=== PATIENT | male | born 1960 | race Hispanic/Latino ===

== ENCOUNTER 2022-01-06 19:35 | Emergency (ER) | payer MEDICARE ==
[~2022-01-06] VITALS: Ht 172.7 cm; Wt 86.2 kg
[2022-01-06] MEDS ORDERED: ACETAMINOPHEN 325 MG TAB PO ONE (20:15)
[2022-01-06 20:52] VITALS: BP 137/86
[2022-01-06] MEDS ORDERED: CEPHALEXIN500 MG PO (20:57)
[2022-01-06] MEDS ORDERED: BACITRACIN ZINC 0.9GM TP ONE (21:08)
[2022-01-11] MEDS ORDERED: DOXYCYCLINE HY100 MG PO (14:43)
== END 2022-01-06 20:57 | disposition home or self-care (01) ==
LOC: ER 19:47
DX: Z48.00 Encounter for change or removal of nonsurgical wound dressing (principal); T23.062A Burn of unspecified degree of back of left hand, initial encounter; R50.9 Fever, unspecified; I10 Essential (primary) hypertension; E78.5 Hyperlipidemia, unspecified; F17.210 Nicotine dependence, cigarettes, uncomplicated
CPT/HCPCS: 99283

== ENCOUNTER 2022-01-08 19:40 | Inpatient (IN) | payer MEDICARE ==
[~2022-01-08] VITALS: Ht 172.7 cm; Wt 86.2 kg
[~2022-01-08 19:40] MED LIST: CEPHALEXIN500 MG PO
[2022-01-08] MEDS ORDERED: SODIUM CHLORIDE 0.9% 1000ML 1,000 ML IV ONE (20:30)
[2022-01-08] MEDS ORDERED: ACETAMINOPHEN 325 MG TAB PO ONE (20:30)
[2022-01-08 20:57] LABS: BASOPHILS # (AUTO) 0.1 (0.0-0.1); BASOPHILS % 0.4 % (0.0-1.0); EOSINOPHILS # (AUTO) 0.2 (0.0-0.4); EOSINOPHILS % 1.1 % (0.0-6.0); HEMATOCRIT 37.7 % (38.2-49.6); HEMOGLOBIN 12.2 g/dL (14.0-18.0); LYMPHOCYTES # (AUTO) 1.6 (1.0-3.2); LYMPHOCYTES % 8.2 % (18.0-39.1); MEAN CORPUSCULAR HEMOGLOBIN 30.9 pg (28-32); MEAN CORPUSCULAR HGB CONC 32.4 g/dL (31-35); MEAN CORPUSCULAR VOLUME 95.4 fL (81-99); MONOCYTES # (AUTO) 1.3 (0.2-0.8); MONOCYTES % 6.4 % (4.4-11.3); NEUTROPHILS # (AUTO) 16.2 (2.1-6.9); NEUTROPHILS % 83.4 % (38.7-80.0); PLATELET COUNT 587 x10e3/uL (140-360); RED BLOOD COUNT 3.95 x10e6/uL (4.3-5.7); RED CELL DISTRIBUTION WIDTH 12.8 % (11.7-14.4)
[2022-01-08 21:16] LABS: ALBUMIN 3.1 g/dL (3.5-5.0); ALBUMIN/GLOBULIN RATIO 0.6 (0.8-2.0); ANION GAP 15.7 mmol/L (8-16); CALCIUM 8.8 mg/dL (8.4-10.2); CREATININE, SERUM 0.89 mg/dL (0.72-1.25); POTASSIUM 3.7 mmol/L (3.5-5.1)
[2022-01-08 21:17] LABS: CREATINE KINASE 227 IU/L (30-200)
[2022-01-08] MEDS: Vancomycin IV 1 GM in SODIUM CHLORIDE 0.9% 250ML 250 ML IV SCH (21:30)
[2022-01-08] MEDS ORDERED: ACETAMINOPHEN 325 MG TAB PO PRN ×2 (21:45→23:00)
[2022-01-08] MEDS ORDERED: Morphine 4mg INJECTION 4 MG/ML INJ IV PRN (21:45)
[2022-01-08] MEDS ORDERED: ONDANSETRON HCL INJ 2MG/ML 2ML 2 MG/ML VIAL IV PRN ×2 (21:45→23:00)
[2022-01-08] MEDS ORDERED: IOPAMIDOL 370 MG/ML 100 ML INFUS..BTL INJ ONE (22:38)
[2022-01-08] MEDS ORDERED: LIDOCAINE 4% PATCH TP PRN (23:00)
[2022-01-08] MEDS ORDERED: DEXTROSE 50% SYRINGE 50 ML IV PRN (23:00)
[2022-01-08] MEDS ORDERED: DIPHENHYDRAMINE HCL 25 MG CAP PO PRN (23:00)
[2022-01-08] MEDS ORDERED: MELATONIN 5 MG TABLET PO PRN (23:00)
[2022-01-08] MEDS ORDERED: BENZONATATE 100 MG CAP PO PRN (23:00)
[2022-01-08] MEDS ORDERED: HYDROCODONE/APAP 5MG-325MG TAB PO PRN (23:00)
[2022-01-08] MEDS ORDERED: DOCUSATE SODIUM 100 MG CAP PO PRN (23:00)
[2022-01-08] MEDS ORDERED: POTASSIUM CHLORIDE 20 MEQ TAB CR PO PRN (23:00)
[2022-01-08] MEDS ORDERED: HYDRALAZINE HCL 20 MG/ML VIAL IV PRN (23:00)
[2022-01-08] MEDS ORDERED: ALBUTEROL/IPRATROPIUM 3 ML NEB NEB PRN (23:00)
[2022-01-08] MEDS ORDERED: SIMETHICONE 80 MG CHEW PO PRN (23:00)
[2022-01-09] VITALS (7 sets, daily range): BP systolic 101–136; BP diastolic 68–91
[2022-01-09] MEDS: SODIUM CHLORIDE 0.9% 1000ML 1,000 ML IV SCH ×2 (00:17→05:45)
[2022-01-09] MEDS ORDERED: Morphine 2mg Syringe 2 MG/ML SYR IV PRN (01:45)
[2022-01-09 06:16] LABS: BASOPHILS # (AUTO) 0.1 (0.0-0.1); BASOPHILS % 0.4 % (0.0-1.0); EOSINOPHILS # (AUTO) 0.3 (0.0-0.4); EOSINOPHILS % 2.3 % (0.0-6.0); HEMATOCRIT 33.3 % (38.2-49.6); HEMOGLOBIN 10.7 g/dL (14.0-18.0); LYMPHOCYTES # (AUTO) 1.8 (1.0-3.2); LYMPHOCYTES % 12.5 % (18.0-39.1); MEAN CORPUSCULAR HEMOGLOBIN 30.8 pg (28-32); MEAN CORPUSCULAR HGB CONC 32.1 g/dL (31-35); MONOCYTES # (AUTO) 1.2 (0.2-0.8); NEUTROPHILS # (AUTO) 11.1 (2.1-6.9); NEUTROPHILS % 76.2 % (38.7-80.0); PLATELET COUNT 514 x10e3/uL (140-360); RED BLOOD COUNT 3.47 x10e6/uL (4.3-5.7)
[2022-01-09 06:41] LABS: ALBUMIN 2.6 g/dL (3.5-5.0); ALBUMIN/GLOBULIN RATIO 0.7 (0.8-2.0); ANION GAP 14.4 mmol/L (8-16); CALCIUM 8.1 mg/dL (8.4-10.2); CREATININE, SERUM 0.77 mg/dL (0.72-1.25); POTASSIUM 3.4 mmol/L (3.5-5.1)
[2022-01-09 07:04] LABS: MAGNESIUM 2.1 MG/DL (1.3-2.1); PHOSPHORUS 3.3 MG/DL (2.3-4.7)
[2022-01-09] MEDS: PANTOPRAZOLE SOD 40 MG TABEC PO SCH (08:00)
[2022-01-09] MEDS: Vancomycin IV 1 GM in SODIUM CHLORIDE 0.9% 250ML 250 ML IV SCH ×2 (09:07→22:09)
[2022-01-09] MEDS ORDERED: AMLODIPINE BESY10 MG PO (13:41)
[2022-01-09] MEDS ORDERED: ALPRAZOLAM1 MG PO (13:41)
[2022-01-09] MEDS ORDERED: PAROXETINE HCL20 MG PO (13:41)
[2022-01-09] MEDS ORDERED: LOSARTAN/HCTZ PO (13:41)
[2022-01-09] MEDS ORDERED: ALPRAZOLAM 1 MG TAB PO PRN (14:00)
[2022-01-09] MEDS: AMLODIPINE BESYLATE 10 MG TAB PO SCH (14:53)
[2022-01-09] MEDS: ENOXAPARIN SOD INJ 40 MG/0.4 ML SYR SC SCH (17:23)
[2022-01-09] MEDS ORDERED: CEFTRIAXONE 2 GM in SODIUM CHLORIDE 0.9% 100 ML IV SCH (21:00)
[2022-01-09] MEDS: PAROXETINE HCL 20 MG TAB PO SCH (21:05)
[2022-01-10] VITALS (7 sets, daily range): BP systolic 111–139; BP diastolic 61–81
[2022-01-10] MEDS: Vancomycin IV 1 GM in SODIUM CHLORIDE 0.9% 250ML 250 ML IV SCH (12:00)
[2022-01-10] MEDS ORDERED: LIDOCAINE HCL 2% LOCAL INJ 5 ML SDV VIAL INJ ONE (12:15)
[2022-01-10] MEDS ORDERED: POVIDONE IODINE 0.05% 0.05 % ML PO ONE (12:15)
[2022-01-10] MEDS ORDERED: PROPOFOL IV EMULSION 10 MG/ML 20 ML VIAL ONE (12:15)
[2022-01-10] MEDS ORDERED: ETOMIDATE 2 MG/ML 10 ML INJ IV ONE (12:15)
[2022-01-10] MEDS ORDERED: SEVOFLURANE INHAL SOLN 250 ML PEN BTL ONE (12:15)
[2022-01-10] MEDS: PANTOPRAZOLE SOD 40 MG TABEC PO SCH (12:21)
[2022-01-10] MEDS: AMLODIPINE BESYLATE 10 MG TAB PO SCH (12:22)
[2022-01-10] MEDS ORDERED: Vancomycin IV 1.25 GM in SODIUM CHLORIDE 0.9% 250ML 250 ML IV SCH (13:00)
[2022-01-10] MEDS ORDERED: FENTANYL CITRATE/PF 100MCG/2 ML INJ ONE (13:08)
[2022-01-10] MEDS ORDERED: MIDAZOLAM HCL 2 MG/2 ML VIAL ONE (13:08)
[2022-01-10] MEDS: ENOXAPARIN SOD INJ 40 MG/0.4 ML SYR SC SCH (16:08)
[2022-01-10] MEDS: Vancomycin IV 1.25 GM in SODIUM CHLORIDE 0.9% 250ML 250 ML IV SCH (21:00)
[2022-01-10] MEDS ORDERED: SODIUM CHLORIDE 0.9% 250ML 250 ML ONE (21:14)
[2022-01-10] MEDS: PAROXETINE HCL 20 MG TAB PO SCH (21:17)
[2022-01-11] VITALS: BP 117/71
[2022-01-11 04:00] VITALS: BP_SYST 131; BP_SYST 133; BP_DIAS 61; BP_DIAS 89
[2022-01-11 07:38] LABS: BASOPHILS # (AUTO) 0.1 (0.0-0.1); BASOPHILS % 0.7 % (0.0-1.0); EOSINOPHILS # (AUTO) 0.3 (0.0-0.4); EOSINOPHILS % 3.4 % (0.0-6.0); HEMATOCRIT 37.9 % (38.2-49.6); LYMPHOCYTES # (AUTO) 1.3 (1.0-3.2); LYMPHOCYTES % 13.4 % (18.0-39.1); MEAN CORPUSCULAR HEMOGLOBIN 30.4 pg (28-32); MEAN CORPUSCULAR HGB CONC 31.7 g/dL (31-35); MEAN CORPUSCULAR VOLUME 95.9 fL (81-99); MONOCYTES # (AUTO) 0.6 (0.2-0.8); MONOCYTES % 5.8 % (4.4-11.3); NEUTROPHILS # (AUTO) 7.5 (2.1-6.9); NEUTROPHILS % 76.2 % (38.7-80.0); PLATELET COUNT 473 x10e3/uL (140-360); RED BLOOD COUNT 3.95 x10e6/uL (4.3-5.7); RED CELL DISTRIBUTION WIDTH 12.7 % (11.7-14.4)
[2022-01-11 07:59] LABS: ANION GAP 12.9 mmol/L (8-16); CALCIUM 8.5 mg/dL (8.4-10.2); CREATININE, SERUM 0.72 mg/dL (0.72-1.25); POTASSIUM 3.9 mmol/L (3.5-5.1)
[2022-01-11 08:00] VITALS: BP 122/74
[2022-01-11] MEDS: PANTOPRAZOLE SOD 40 MG TABEC PO SCH (08:10)
[2022-01-11] MEDS: Vancomycin IV 1.25 GM in SODIUM CHLORIDE 0.9% 250ML 250 ML IV SCH (08:11)
[2022-01-11] MEDS: AMLODIPINE BESYLATE 10 MG TAB PO SCH (08:11)
[2022-01-11 11:57] VITALS: BP 126/83
[2022-01-11] MEDS ORDERED: DOXYCYCLINE HY100 MG PO (14:43)
[2022-01-11 15:48] VITALS: BP 113/76
[2022-01-11] MEDS: ENOXAPARIN SOD INJ 40 MG/0.4 ML SYR SC SCH (17:00)
== END 2022-01-11 18:00 | disposition home or self-care (01) | DRG 580 ==
LOC: ER 19:50 → ERHOLD 22:03 → MED/SURG2 23:47
PROVIDERS: ADMIT Internal Medicine; ATTEND Internal Medicine
PROC: 0JDF0ZZ Extraction of Left Upper Arm Subcutaneous Tissue and Fascia, Open Approach (ICD-10-PCS; principal; 2022-01-10 09:27)
DX: S40.862A Insect bite (nonvenomous) of left upper arm, initial encounter (principal); L03.114 Cellulitis of left upper limb; W57.XXXA Bitten or stung by nonvenomous insect and other nonvenomous arthropods, initial encounter; I10 Essential (primary) hypertension; E78.5 Hyperlipidemia, unspecified; Z89.612 Acquired absence of left leg above knee; E66.01 Morbid (severe) obesity due to excess calories; F41.9 Anxiety disorder, unspecified; Z68.28 Body mass index [BMI] 28.0-28.9, adult
CPT/HCPCS: 36415; 80048; 80053; 80202; 82550; 82553; 83036; 83605; 83735; 84100; 84484; 85025; 87040; 87071; 87075; 87205; 93005; 94799; 99284; J0696; J1650; J2001; J2250; J2543; J3010; J3370; J7030; J7050; Q9967